=== PATIENT | male | born 1955 | race Caucasian/White ===

== ENCOUNTER 2024-02-10 07:56 | Day surgery (SDC) | payer MEDICARE ==
[~2024-02-10] VITALS: Ht 165.1 cm; Wt 64.6 kg
[~2024-02-10 07:56] MED LIST: LR 1,000 ML IV SCH
[2024-02-10] MEDS ORDERED: Ondansetron 4 MG/2 ML VIAL ONE (08:10)
[2024-02-10] MEDS ORDERED: Lidocaine PF 2% (20 MG/ML) 5 ML VIAL ONE (08:10)
[2024-02-10] MEDS ORDERED: dexAMETHasone 10 MG/ML VIAL ONE (08:10)
[2024-02-10] MEDS ORDERED: fentaNYL 50 MCG/ML 5 ML VIAL ONE (08:11)
[2024-02-10] MEDS ORDERED: Rocuronium 50 MG/5 ML Multi-Dose VIAL ONE ×2 (08:11→11:09)
[2024-02-10] MEDS ORDERED: LOTREL 5 MG-401 CAP PO (08:19)
[2024-02-10] MEDS ORDERED: ACIPHEX20 MG PO (08:20)
[2024-02-10] MEDS ORDERED: CIALIS10 MG PO (08:20)
[2024-02-10 08:21] VITALS: BP 168/85; PULSE 71; TEMP 98
[2024-02-10] MEDS ORDERED: TYLENOL 325MG325 MG PO (08:21)
[2024-02-10] MEDS ORDERED: fentaNYL 50 MCG/ML 1 ML SYRINGE/VIAL [PACU/SDC ONLY] IV PRN (08:30)
[2024-02-10] MEDS ORDERED: Ketorolac 15 MG/ML VIAL IV PRN (08:30)
[2024-02-10] MEDS ORDERED: Meperidine 50 MG/ML 1 ML VIAL IV PRN (08:30)
[2024-02-10] MEDS ORDERED: HYDROmorphone 1 MG/1 ML SYRINGE [PACU/SDC ONLY] IV PRN (08:30)
[2024-02-10] MEDS ORDERED: hydrALAZINE 20 MG/ML 1 ML VIAL IV PRN (08:30)
--- NOTE | 2024-02-10 08:39 | NUR ---
Pt arrived with , VSS and WNL for the procedure, RR even and unlabored; consents reviewed and signed, no questions/concerns; reviewed meds/pharm/allergies/history and updated; IV placed to LH, 20G and LR hanging.
[2024-02-10] MEDS ORDERED: fentaNYL 50 MCG/ML 2 ML VIAL ONE ×2 (11:10→11:41)
[2024-02-10] MEDS ORDERED: Labetalol 100 MG/20 ML Multi-Dose VIAL ONE (11:11)
[2024-02-10] MEDS ORDERED: Ketorolac 30 MG/ML VIAL ONE (11:31)
[2024-02-10] MEDS ORDERED: NORCO 325 MG-51 TAB PO (11:44)
[2024-02-10] MEDS ORDERED: Ibuprofen 600 MG TAB PO PRN (11:45)
[2024-02-10] MEDS ORDERED: Ondansetron 4 MG/2 ML VIAL IV PRN (11:45)
[2024-02-10 12:20] VITALS: BP 147/80; PULSE 83; TEMP 97.7
[2024-02-10 12:24] VITALS: TEMP 97.7
[2024-02-10 12:30] VITALS: BP 158/82; PULSE 68
--- NOTE | 2024-02-10 12:39 | NUR ---
Report received from Estefani FR[employer] MONITOR. At 1220 pt returned to [facility]. Pts present in room on return. Pt A&O. VSS-see flowsheet. Scrotal support in place. Pt with x3 sites to abdomen with clean and dry bandaids to surgical sites. IV patent to left hand. Pt given jello and water. Up to bathroom to void without difficulty, though required hands on steadying with ambulation. Settle back on cart and resuming VS monitoring. Denies needs or complaints at this time. Side rails up and call light in reach.
[2024-02-10 12:45] VITALS: BP 144/83; PULSE 67
[2024-02-10 13:00] VITALS: BP 161/84; PULSE 70
--- NOTE | 2024-02-10 13:20 | NUR ---
Pts IV removed, pressure dressing applied. Pt dressed. Discharge teaching completed, pt and pts verbalized understanding. Pt taken via wheelchair to private vehicle for dc home with driving.
== END 2024-02-10 13:20 | disposition home or self-care (01) ==
LOC: SDCO 07:56
DX: K40.20 Bilateral inguinal hernia, without obstruction or gangrene, not specified as recurrent (principal)
CPT/HCPCS: C1781; J0665; J0690; J1100; J1170; J1885; J1920; J2405; J2704; J3010; J7120